=== PATIENT | female | born 1995 | race Hispanic/Latino ===

== ENCOUNTER 2021-02-26 10:18 | Inpatient (IN) | payer OTHER, SELFPAY ==
[~2021-02-26 10:18] MED LIST: Bupivacaine 0.25% HCL 30 ML VIAL ONE; Bupivacaine PF 0.5% 30 ML VIAL ONE; ePHEDrine Sulfate 50 MG/10 ML VIAL ONE
[2021-02-26 10:58] VITALS: BMI 28.7
[2021-02-26] MEDS ORDERED: Lidocaine 1% (PF) 30 ML VIAL SC PRN (11:23)
[2021-02-26] MEDS ORDERED: Promethazine HCl 25 MG/ML VIAL IM PRN (11:23)
[2021-02-26] MEDS ORDERED: hydrALAZINE 20 MG/ML VIAL SLOW IVP PRN (11:23)
[2021-02-26] MEDS ORDERED: Butorphanol Tartrate 1 MG/ML VIAL SLOW IVP PRN (11:23)
[2021-02-26] MEDS ORDERED: Ondansetron PF 4 MG/2 ML Vial IVP PRN (11:23)
[2021-02-26] MEDS ORDERED: Ibuprofen 800 MG TAB PO PRN (11:23)
[2021-02-26] MEDS ORDERED: HYDROcodone/Acetaminophen 5/325 mg Tablet PO PRN ×2 (11:23)
[2021-02-26] MEDS ORDERED: NS w/ Oxytocin 30 units 500 ML IVPB PRN (11:36)
[2021-02-26 12:34] LABS: Hemoglobin 11.3 g/dL (12.0-15.5); Mean Corpuscular HGB CONC 33.7 g/dL (32.0-36.0); Mean Corpuscular Volume 86.1 fl (81.6-98.3); Platelet Count 314 10x3/uL (150-450); RBC Distribution Width 12.3 % (11.5-14.5); Red Blood Cell (RBC) Count 3.89 10x6/uL (3.90-5.03); White Blood Cell (WBC) Count 7.9 10x3/uL (3.5-10.5)
[2021-02-26 13:00] LABS: ALT (SGPT) 11 U/L (8-55); AST (SGOT) 17 U/L (5-34); Albumin 3.4 g/dL (3.5-5.0); Alkaline Phosphatase 186 U/L (40-110); Anion Gap 17 mmol/L (10-20); BUN (Urea Nitrogen) 6 mg/dL (7.0-18.7); Bilirubin, Total 0.2 mg/dL (0.2-1.2); Calc. Creatinine Clearance 173 mL/min (70-130); Carbon Dioxide 17 mmol/L (22-29); Chloride 108 mmol/L (98-107); Globulin 2.5 g/dL (2.4-3.5); Glucose 70 mg/dL (70-105); Potassium 3.8 mmol/L (3.5-5.1); Protein, Total 5.9 g/dL (6.0-8.3); Sodium 138 mmol/L (136-145)
[2021-02-26 13:19] LABS: Syphilis Antibody Nonreactive (Nonreactive); Syphilis Antibody Index 0.03 S/CO (<1.00 Non-Reactive)
[2021-02-26 13:53] LABS: Hep B Surf Ag Non-Reactive S/CO (NonReactive)
[2021-02-26 15:01] LABS: HBSAg Index 0.18 S/CO (0-0.99)
[2021-02-26] MEDS ORDERED: Fentanyl 4 mcg/Bup 0.1% Cadd 100 ML ONE (17:27)
[2021-02-26] MEDS: Lactated Ringer's 1,000 ML IV SCH ×3 (17:48→21:54)
[2021-02-26] MEDS ORDERED: Fentanyl 100 MCG/2 ML VIAL ONE (17:53)
[2021-02-26] MEDS ORDERED: Lidocaine 1% (PF) 30 ML VIAL ONE (22:07)
[2021-02-27] MEDS ORDERED: Lanolin Ointment 7 GM TUBE TOP PRN (00:21)
[2021-02-27] MEDS ORDERED: Milk Of Magnesia 30 ML UDCUP PO PRN (00:21)
[2021-02-27] MEDS ORDERED: hydrALAZINE 20 MG/ML VIAL SLOW IVP PRN (00:21)
[2021-02-27] MEDS ORDERED: Acetaminophen/Codeine 30-300mg Tablet PO PRN ×2 (00:21)
[2021-02-27] MEDS ORDERED: diphenhydrAMINE 25 MG CAP PO PRN (00:21)
[2021-02-27] MEDS ORDERED: Bisacodyl 10 MG SUPP PR PRN (00:21)
[2021-02-27] MEDS ORDERED: NS / Oxytocin 40 units/1000ml 1,000 ML IV SCH (00:30)
[2021-02-27] MEDS ORDERED: NS w/ Oxytocin 30 units 500 ML ONE (00:42)
[2021-02-27 01:18] LABS: SARS-CoV-2 PCR by NAA Not Detected (NotDetected)
[2021-02-27] MEDS: Ibuprofen 800 MG TAB PO SCH ×3 (01:19→18:17)
[2021-02-27] MEDS ORDERED: Ibuprofen 800 MG TAB PO SCH (06:00)
[2021-02-27] MEDS: Prenatal Vitamin 1 TAB PO SCH (08:54)
[2021-02-27] MEDS: Docusate Calcium (SURFAK) 240 MG CAP PO SCH ×2 (08:54→21:14)
[2021-02-27] MEDS ORDERED: Measles/Mumps/Rubella 10 MCG/0.5 ML VIAL SC ONE (09:00)
[2021-02-27] MEDS ORDERED: Varicella virus, LIVE 0.5 ML VIAL SC ONE (09:00)
[2021-02-27] MEDS ORDERED: Adacel (T-DAP) 0.5 ML SYRINGE IM ONE (09:00)
[2021-02-28] MEDS: Ibuprofen 800 MG TAB PO SCH ×2 (02:19→09:49)
[2021-02-28 05:56] LABS: HIV (1/2) Antibody/Antigen Non-Reactive (NonReactive); HIV 1/2 INDEX 0.09 S/CO (<1.00)
[2021-02-28] MEDS: Ferrous Sulfate 325 MG TAB PO SCH ×2 (08:03→08:06)
[2021-02-28] MEDS: Lactated Ringer's 1,000 ML IV SCH ×2 (08:05→11:30)
[2021-02-28 09:16] VITALS: BP 118/75; TEMP 97.9
[2021-02-28] MEDS: Docusate Calcium (SURFAK) 240 MG CAP PO SCH (09:49)
[2021-02-28] MEDS: Prenatal Vitamin 1 TAB PO SCH (09:50)
== END 2021-02-28 16:27 | disposition home or self-care (01) | DRG 807 ==
LOC: CSHLD/OP 10:18 → CSHLD 11:39 → CSHPP 02-27 09:34
PROVIDERS: ADMIT Obstetrics & Gynecology; ATTEND Obstetrics & Gynecology
PROC: 10E0XZZ Delivery of Products of Conception, External Approach (ICD-10-PCS; principal; 2021-02-27)
PROC: 0KQM0ZZ Repair Perineum Muscle, Open Approach (ICD-10-PCS; 2021-02-27)
PROC: 4A0HXCZ Measurement of Products of Conception, Cardiac Rate, External Approach (ICD-10-PCS; 2021-02-27)
DX: O70.1 Second degree perineal laceration during delivery (principal); Z37.0 Single live birth; Z3A.38 38 weeks gestation of pregnancy
CPT/HCPCS: 36415; 51702; 80053; 85014; 85018; 85027; 86780; 86850; 86900; 86901; 87340; 87389; 87635; 99285; J2405; J2590; S0020; U0003; U0005

== ENCOUNTER 2021-03-01 02:22 | Emergency (ER) | payer OTHER ==
[2021-03-01] MEDS ORDERED: Metoclopramide HCl 10 MG/2 ML VIAL ONE (04:15)
[2021-03-01] MEDS ORDERED: diphenhydrAMINE 50 MG/ML VIAL ONE (04:15)
[2021-03-01] MEDS ORDERED: Acetaminophen 500 MG TAB ONE (04:16)
[2021-03-01 05:30] LABS: #Eosinphils 0.2 10x3/uL (0.0-0.5); #Monocytes 0.6 10x3/uL (0.0-1.1); #Neutrophils 8.7 10x3/uL (1.5-8.4); %Basophils 0.4 % (0.0-2.0); %Eosinophils 1.7 % (0.0-6.0); %Lymphocytes 12.5 % (18.0-47.0); %Monocytes 5.6 % (0.0-10.0); %Neutrophils 79.4 % (40.0-75.0); Hemoglobin 10.6 g/dL (12.0-15.5); Mean Corpuscular HGB CONC 33.1 g/dL (32.0-36.0); Mean Corpuscular Volume 87.7 fl (81.6-98.3); Mean Platelet Volume 9.8 fl (7.4-10.4); Platelet Count 311 10x3/uL (150-450); RBC Distribution Width 12.6 % (11.5-14.5); Red Blood Cell (RBC) Count 3.65 10x6/uL (3.90-5.03)
[2021-03-01 05:35] LABS: Bilirubin Neg (Negative); Blood, Urine 150 (Negative); Clarity Clear (Clear); Glucose, Urine (Dipstick) Normal (Negative); Ketone, Urine Negative (Negative); Leukocyte 25 (Negative); Nitrite Negative (Negative); Protein, Urine (Dipstick) Negative (Neg-Trace); Specific Gravity, Urine 1.005 (1.002-1.036); Urobilinogen Normal mg/dL (Less than 2)
[2021-03-01 05:44] LABS: ALT (SGPT) 11 U/L (8-55); AST (SGOT) 23 U/L (5-34); Albumin 3.3 g/dL (3.5-5.0); Alkaline Phosphatase 148 U/L (40-110); Anion Gap 15 mmol/L (10-20); BUN (Urea Nitrogen) 4 mg/dL (7.0-18.7); Bilirubin, Total 0.2 mg/dL (0.2-1.2); Calc. Creatinine Clearance 0 mL/min (70-130); Calcium 8.8 mg/dL (7.8-10.44); Carbon Dioxide 20 mmol/L (22-29); Chloride 108 mmol/L (98-107); Globulin 2.4 g/dL (2.4-3.5); Glucose 78 mg/dL (70-105); Magnesium 1.7 mg/dL (1.6-2.6); Potassium 3.9 mmol/L (3.5-5.1); Protein, Total 5.7 g/dL (6.0-8.3); Sodium 139 mmol/L (136-145)
[2021-03-01 05:52] LABS: Bacteria/HPF Rare-Few HPF (None Seen); Squamous Epithelial 0-3 HPF (0-3); WBC/HPF 0-3 HPF (0-3)
== END 2021-03-01 06:26 | disposition home or self-care (01) ==
LOC: CSHERS 02:22
DX: G97.1 Other reaction to spinal and lumbar puncture (principal); R51.0 Headache with orthostatic component, not elsewhere classified; R07.89 Other chest pain; Y84.4 Aspiration of fluid as the cause of abnormal reaction of the patient, or of later complication, without mention of misadventure at the time of the procedure
CPT/HCPCS: 70450; 70496; 70498; 71045; 80053; 81003; 81015; 83735; 84484; 85025; 85379; 93005; 93010; 96374; 96375; J1200; J2765

== ENCOUNTER 2021-03-02 08:38 | Emergency (ER) | payer OTHER, SELFPAY ==
[2021-03-02 09:30] LABS: Anion Gap 14 mmol/L (10-20); BUN (Urea Nitrogen) 4 mg/dL (7.0-18.7); Calc. Creatinine Clearance 0 mL/min (70-130); Calcium 8.9 mg/dL (7.8-10.44); Carbon Dioxide 23 mmol/L (22-29); Chloride 109 mmol/L (98-107); Glucose 76 mg/dL (70-105); Potassium 3.8 mmol/L (3.5-5.1); Sodium 142 mmol/L (136-145)
[2021-03-02 09:34] LABS: #Eosinphils 0.2 10x3/uL (0.0-0.5); #Monocytes 0.5 10x3/uL (0.0-1.1); #Neutrophils 6.7 10x3/uL (1.5-8.4); %Basophils 0.3 % (0.0-2.0); %Eosinophils 1.8 % (0.0-6.0); %Lymphocytes 15.2 % (18.0-47.0); %Monocytes 5.2 % (0.0-10.0); Hemoglobin 10.9 g/dL (12.0-15.5); Mean Corpuscular HGB CONC 33.3 g/dL (32.0-36.0); Mean Corpuscular Hemoglobin 29.1 pg (27.0-33.0); Mean Corpuscular Volume 87.4 fl (81.6-98.3); Mean Platelet Volume 9.7 fl (7.4-10.4); Platelet Count 348 10x3/uL (150-450); RBC Distribution Width 12.6 % (11.5-14.5); Red Blood Cell (RBC) Count 3.74 10x6/uL (3.90-5.03); White Blood Cell (WBC) Count 8.7 10x3/uL (3.5-10.5)
== END 2021-03-02 10:50 | disposition home or self-care (01) ==
LOC: CSHERS 08:38
DX: O89.4 Spinal and epidural anesthesia-induced headache during the puerperium (principal)
CPT/HCPCS: 80048; 85025; 99284

== ENCOUNTER 2024-11-10 16:50 | Day surgery (SDC) | payer OTHER ==
[2024-11-10] MEDS ORDERED: hydrALAZINE 20 MG/ML VIAL SLOW IVP PRN (17:16)
[2024-11-10 17:22] VITALS: BMI 30.2
[2024-11-10 18:35] LABS: Bilirubin Neg (Negative); Blood, Urine Negative (Negative); Clarity Slightly Cloudy (Clear); Glucose, Urine (Dipstick) Normal (Negative); Ketone, Urine Negative (Negative); Leukocyte 100 (Negative); Nitrite Negative (Negative); Protein, Urine (Dipstick) 15 mg/dl (Neg-Trace); Specific Gravity, Urine 1.015 (1.005-1.030); Urobilinogen Normal mg/dL (Less than 2)
[2024-11-10] MEDS: Acetaminophen 500 MG TAB PO SCH (18:41)
[2024-11-10 18:46] LABS: Bacteria/HPF 4+ HPF (None Seen); CAUTI Indications for Culture Pelvic or flank pain; RBC/HPF 0-3 HPF (0-3)
[2024-11-10 18:48] LABS: Urine Culture Reflex No No
[2024-11-10] MEDS: Cephalexin 500 MG CAP PO SCH (19:32)
== END 2024-11-10 19:40 | disposition home or self-care (01) ==
LOC: CSHLD/OP 16:50
PROVIDERS: ATTEND Obstetrics & Gynecology
DX: O47.03 False labor before 37 completed weeks of gestation, third trimester (principal); O23.43 Unspecified infection of urinary tract in pregnancy, third trimester; Z79.82 Long term (current) use of aspirin; Z79.899 Other long term (current) drug therapy; Z3A.32 32 weeks gestation of pregnancy
CPT/HCPCS: 87480; 87510; 87660

== ENCOUNTER 2024-12-16 08:29 | Day surgery (SDC) | payer BC ==
[2024-12-16] MEDS ORDERED: hydrALAZINE 20 MG/ML VIAL SLOW IVP PRN (09:18)
[2024-12-16 09:30] VITALS: BMI 30.4
[2024-12-16 10:01] LABS: Bilirubin Neg (Negative); Blood, Urine 10 (Negative); Clarity Clear (Clear); Glucose, Urine (Dipstick) Normal (Negative); Ketone, Urine 5 mg/dL (Negative); Leukocyte 25 (Negative); Nitrite Negative (Negative); Protein, Urine (Dipstick) 30 mg/dl (Neg-Trace); Specific Gravity, Urine 1.015 (1.005-1.030)
[2024-12-16 10:12] LABS: Bacteria/HPF 1+ HPF (None Seen); CAUTI Indications for Culture Pregnancy; Mucous/LPF 1+ LPF (<2+); WBC/HPF 0-3 HPF (0-3)
[2024-12-16 10:13] LABS: Urine Culture Reflex Yes Yes
== END 2024-12-16 11:15 | disposition home or self-care (01) ==
LOC: CSHLD/OP 08:29
PROVIDERS: ATTEND Obstetrics & Gynecology
DX: O23.43 Unspecified infection of urinary tract in pregnancy, third trimester (principal); O47.1 False labor at or after 37 completed weeks of gestation; Z3A.37 37 weeks gestation of pregnancy; Z79.899 Other long term (current) drug therapy
CPT/HCPCS: 81001; 87086; 99283

== ENCOUNTER 2024-12-27 02:28 | Inpatient (IN) | payer BC ==
[2024-12-27 02:48] VITALS: BMI 30.6
[2024-12-27] MEDS ORDERED: Methylergonovine 0.2 MG/ML VIAL IM PRN (03:30)
[2024-12-27] MEDS ORDERED: Lidocaine 1% (PF) 30 ML VIAL SC PRN (03:30)
[2024-12-27] MEDS ORDERED: Promethazine HCl 25 MG/ML VIAL IM PRN ×2 (03:30→08:25)
[2024-12-27] MEDS ORDERED: Tranexamic Acid 1,000 MG/10 ML VIAL IVP PRN (03:30)
[2024-12-27] MEDS ORDERED: Diphenoxylate HCl/Atropine Tablet PO PRN (03:30)
[2024-12-27] MEDS ORDERED: Oxytocin 30 units/NS 500 ML 500 ML IV SCH (03:30)
[2024-12-27] MEDS ORDERED: Misoprostol 200 MCG TAB RC PRN (03:30)
[2024-12-27] MEDS ORDERED: HYDROcodone/Acetaminophen 5/325 mg Tablet PO PRN (03:30)
[2024-12-27] MEDS ORDERED: Carboprost 250 MCG/ML AMP IM PRN (03:30)
[2024-12-27] MEDS ORDERED: hydrALAZINE 20 MG/ML VIAL SLOW IVP PRN ×2 (03:30→22:37)
[2024-12-27] MEDS: Lactated Ringer's 1,000 ML IV SCH (03:35)
[2024-12-27 04:03] LABS: Hematocrit 27.1 % (34.9-44.5); Mean Corpuscular HGB CONC 33.2 g/dL (32.0-36.0); Mean Corpuscular Hemoglobin 25.5 pg (27.0-33.0); Mean Corpuscular Volume 76.8 fL (81.6-98.3); Mean Platelet Volume 9.5 fL (7.4-10.4); Platelet Count 363 10x3/uL (150-450); RBC Distribution Width 13.7 % (11.5-14.5); Red Blood Cell (RBC) Count 3.53 10x6/uL (3.90-5.03); White Blood Cell (WBC) Count 7.02 10x3/uL (3.5-10.5)
[2024-12-27 04:34] LABS: HBsAg Index 0.18 S/CO (0-0.99); HIV (1/2) Antibody/Antigen Non-Reactive (NonReactive); HIV 1/2 INDEX 0.09 S/CO (<1.00); Hep B Surf Ag - L&D Non-Reactive S/CO (NonReactive)
[2024-12-27 04:35] LABS: Syphilis Antibody Nonreactive (Nonreactive); Syphilis Antibody Index 0.07 S/CO (<1.00 Non-Reactive)
[2024-12-27] MEDS: fentaNYL 50 mcg/mL 1 mL Vial SLOW IVP PRN (05:19)
[2024-12-27] MEDS: Ondansetron PF 4 MG/2 ML Vial IVP PRN (05:20)
[2024-12-27] MEDS: fentaNYL/Ropivacaine Epidural 100 ML ONE (07:20)
[2024-12-27] MEDS ORDERED: ALPRAZolam 0.25 MG TAB PO PRN (07:45)
[2024-12-27] MEDS: Acetaminophen 500 MG TAB PO PRN (07:53)
[2024-12-27] MEDS: hydrOXYzine 25 MG TAB PO SCH (07:53)
[2024-12-27] MEDS ORDERED: Moisturizing Cream (Eucerin) 113 GM JAR TOP PRN (08:25)
[2024-12-27] MEDS ORDERED: Naloxone HCl 0.4 mg/ml Vial IVP PRN ×2 (08:25)
[2024-12-27] MEDS ORDERED: diphenhydrAMINE 50 MG/ML VIAL IVP PRN (08:25)
[2024-12-27] MEDS ORDERED: Lactated Ringer's 500 ML IV PRN (08:25)
[2024-12-27] MEDS ORDERED: ePHEDrine Sulfate 50 MG/10 ML VIAL SLOW IVP PRN (08:25)
[2024-12-27] MEDS ORDERED: Ondansetron PF 4 MG/2 ML Vial IVP PRN (08:25)
[2024-12-27] MEDS ORDERED: Communication Order-Pharmacy FS SCH (08:30)
[2024-12-27] MEDS ORDERED: Bupivacaine 0.25% HCL 30 ML VIAL ONE (09:00)
[2024-12-27] MEDS ORDERED: ePHEDrine Sulfate 50 MG/10 ML VIAL ONE (09:00)
[2024-12-27] MEDS: Acetaminophen 325 MG TAB PO PRN (12:30)
[2024-12-27] MEDS: fentaNYL 2 mcg/Ropivacaine 0.2% Epidural 100 ML CADD EPIDURAL SCH (18:54)
[2024-12-27] MEDS: Ibuprofen 800 MG TAB PO PRN (22:08)
[2024-12-27] MEDS ORDERED: Preparation H Ointment 28 GM TUBE PR PRN (22:37)
[2024-12-27] MEDS ORDERED: diphenhydrAMINE 25 MG CAP PO PRN (22:37)
[2024-12-27] MEDS ORDERED: Milk Of Magnesia 30 ML UDCUP PO PRN (22:37)
[2024-12-27] MEDS ORDERED: Bisacodyl 10 MG SUPP PR PRN (22:37)
[2024-12-27] MEDS ORDERED: Lanolin Ointment 7 GM TUBE TOP PRN (22:37)
[2024-12-27] MEDS: HYDROcodone/Acetaminophen 5/325 mg Tablet PO PRN (23:03)
[2024-12-28] MEDS: Ibuprofen 800 MG TAB PO SCH (05:45)
[2024-12-28] MEDS: Boostrix 0.5 ML (Tdap) VIAL (>/=7 yrs of age) IM ONE (06:58)
[2024-12-28] MEDS: Ferrous Sulfate 325 MG TAB PO SCH (06:58)
[2024-12-28] MEDS: Prenatal Vitamin 1 TAB PO SCH (07:40)
[2024-12-28] MEDS: Docusate 100 MG CAP PO SCH (07:40)
[2024-12-28] MEDS ORDERED: Benzocaine-Menthol 82.5 ML CAN TOP PRN (08:10)
[2024-12-28] MEDS: traMADol HCl 50 MG TAB PO PRN (12:49)
[2024-12-29 09:46] VITALS: BP 116/69; TEMP 97.9
== END 2024-12-29 11:50 | disposition home or self-care (01) | DRG 807 ==
LOC: CSHLD/OP 02:28 → CSHLD 02:59 → CSHPP 12-28 00:15
PROVIDERS: ADMIT Obstetrics & Gynecology; ATTEND Obstetrics & Gynecology
PROC: 10E0XZZ Delivery of Products of Conception, External Approach (ICD-10-PCS; principal; 2024-12-27)
PROC: 10907ZC Drainage of Amniotic Fluid, Therapeutic from Products of Conception, Via Natural or Artificial Opening (ICD-10-PCS; 2024-12-27)
PROC: 3E0S3BZ Introduction of Anesthetic Agent into Epidural Space, Percutaneous Approach (ICD-10-PCS; 2024-12-27)
PROC: 0UQMXZZ Repair Vulva, External Approach (ICD-10-PCS; 2024-12-27)
DX: O76 Abnormality in fetal heart rate and rhythm complicating labor and delivery (principal); Z37.0 Single live birth; Z3A.39 39 weeks gestation of pregnancy; O70.0 First degree perineal laceration during delivery
CPT/HCPCS: 51702; 85027; 86780; 86850; 86900; 86901; 87340; 87389; 99285; J0665; J2405; J3010; J7120

== ENCOUNTER 2024-12-31 10:58 | Emergency (ER) | payer BC | END 2024-12-31 13:05 | disposition home or self-care (01) | LOC: CSHERS 10:58 | DX: O89.4 Spinal and epidural anesthesia-induced headache during the puerperium (principal) | CPT/HCPCS: 62272 ==